=== PATIENT | female | born 1965 | race Caucasian/White ===

== ENCOUNTER 2019-09-19 18:56 | Emergency (ER) | payer MEDICAID ==
[~2019-09-19] VITALS: Ht 149.9 cm; Wt 50.5 kg
[2019-09-19 19:02] VITALS: BP 123/77
[2019-09-19] MEDS ORDERED: PRED20TA PO (19:19)
== END 2019-09-19 19:46 | disposition home or self-care (01) ==
LOC: ER 18:56
DX: J02.9 Acute pharyngitis, unspecified (principal); R50.9 Fever, unspecified; Z79.899 Other long term (current) drug therapy
CPT/HCPCS: 99283